=== PATIENT | male | born 1945 | race Caucasian/White ===

== ENCOUNTER → 2019-01-09 | Outpatient (CLI) | payer OTHER ==
[~2019-01-09] MED LIST: ADULT LOW DOSE81 MG PO; FLEXERIL PO; LISINOPRIL; NAPROSYN500 MG PO; PAXIL40 MG PO; XANAX XR1 MG PO; ZESTRIL; ZOCOR40 MG PO
== END ==
LOC: CAT 10:40
DX: Z13.6 Encounter for screening for cardiovascular disorders (principal); E78.00 Pure hypercholesterolemia, unspecified; I25.10 Atherosclerotic heart disease of native coronary artery without angina pectoris

== ENCOUNTER → 2020-02-08 | Outpatient (CLI) | payer OTHER | LOC: SJCVC 11:19 → SJCVCIMAG 11:19 | PROVIDERS: ATTEND Internal Medicine Cardiovascular Disease | DX: I65.23 Occlusion and stenosis of bilateral carotid arteries (principal); I49.9 Cardiac arrhythmia, unspecified; I10 Essential (primary) hypertension; E78.00 Pure hypercholesterolemia, unspecified; G47.33 Obstructive sleep apnea (adult) (pediatric); I77.9 Disorder of arteries and arterioles, unspecified; Z99.89 Dependence on other enabling machines and devices; Z79.899 Other long term (current) drug therapy; Z87.891 Personal history of nicotine dependence; Z82.49 Family history of ischemic heart disease and other diseases of the circulatory system ==

== ENCOUNTER → 2020-08-25 | Outpatient (CLI) | payer OTHER | LOC: SJCVCIMAG 09:05 | PROVIDERS: ATTEND Internal Medicine Cardiovascular Disease | DX: I49.3 Ventricular premature depolarization (principal); R06.00 Dyspnea, unspecified; R94.31 Abnormal electrocardiogram [ECG] [EKG]; E78.5 Hyperlipidemia, unspecified; I10 Essential (primary) hypertension; Z79.82 Long term (current) use of aspirin; Z79.899 Other long term (current) drug therapy ==